=== PATIENT | male | born 1950 | race Two or more races ===

== ENCOUNTER 2018-11-26 03:02 | Emergency (ER) | payer MEDICARE, OTHER ==
[~2018-11-26] VITALS: Ht 180.3 cm; Wt 113.4 kg
[2018-11-26] MEDS ORDERED: KETOROLAC TROMETH 60MG/2ML VIAL IM ONE (07:00)
[2018-11-26 07:33] VITALS: BP 155/92
== END 2018-11-26 07:42 | disposition home or self-care (01) ==
LOC: ER 03:06
DX: S83.91XA Sprain of unspecified site of right knee, initial encounter (principal); E11.9 Type 2 diabetes mellitus without complications; M10.9 Gout, unspecified; E78.5 Hyperlipidemia, unspecified; I25.2 Old myocardial infarction; Z95.1 Presence of aortocoronary bypass graft; X58.XXXA Exposure to other specified factors, initial encounter; Y93.89 Activity, other specified; Y99.8 Other external cause status; Y92.89 Other specified places as the place of occurrence of the external cause
CPT/HCPCS: 73562; 96372; 99283; J1885

== ENCOUNTER 2025-07-21 21:29 | Emergency (ER) | payer MEDICARE, OTHER ==
[~2025-07-21] VITALS: Ht 180.3 cm; Wt 106.4 kg
[2025-07-21 21:33] VITALS: BP 171/89; PULSE 111; RESP 14; TEMP 99.8; O2SAT 98
--- NOTE | 2025-07-21 21:53 | ED.PDOC ---
History of Present Illness HPI Comments 75 year-old morbidly obese male presents to the ED via EMS with a chief complaint of general weakness for X6 hours today. Pt has a PMHx of type II DM, Gout, High Lipids, HTN, and W[place]. Patient reports a fall, today, with minor abrasions to the hands and knees. Patient additionally reports a cat bite to the R hand, middle finger X3 days ago. Patient went to and was prescribed Augmentin for the puncture wound. Patient reports being non-compliant with medications today. Patients BGL were elevated today at 282, compared to normal levels of 136. Patient has no further complaints or modifying factors at this time. Chief Complaint: General Weakness Time Seen by MD: 21:36 Primary Care Provider: ELMER Sheppard Notes: Medications, Allergies Allergies: Coded Allergies: NO KNOWN ALLERGIES (Unverified , 02/02/14) Information Source: Patient, Emergency Med Personnel Mode of Arrival: EMS Severity: Moderate Timing: Hours Duration: Since onset Past Medical History PAST MEDICAL HISTORY: DM, Gout, High Lipids, HTN, W[place] Surgical History: CABG, Hernia Repair Social History Smoker: Non-Smoker Alcohol: Occasionally Drugs: Denies Drug Use Lives In: Home Constitutional: reports: weakness; denies: chills, diaphoresis, fatigue, fever, malaise, sweats, others EENTM: denies: blurred vision, double vision, ear bleeding, ear discharge, ear drainage, ear pain, ear ringing, eye pain, eye redness, hearing loss, mouth pain, mouth swelling, nasal discharge, nose bleeding, nose congestion, nose pain, photophobia, tearing, throat pain, throat swelling, voice changes, others Respiratory: denies: cough, hemoptysis, orthopnea, SOB at rest, shortness of breath, SOB with excertion, stridor, wheezing, others Cardiovascular: denies: chest pain, dizzy spells, diaphoresis, Dyspnea on exertion, edema, irregular heart beat, left arm pain, lightheadedness, palpitations, PND, syncope, others Gastrointestinal: denies: abdomen distended, abdominal pain, blood streaked bowels, constipated, diarrhea, dysphagia, difficulty swallowing, hematemesis, melena, nausea, poor appetite, poor fluid intake, rectal bleeding, rectal pain, vomiting, others Genitourinary: denies: burning, dysuria, flank pain, frequency, hematuria, incontinence, penile discharge, penile sore, pain, testicle pain, testicle swelling, urgency, others Neurological: denies: dizziness, fainting, headache, left sided numbness, left sided weakness, numbness, paresthesia, pre-existing deficit, right sided numbness, right sided weakness, seizure, speech problems, tingling, tremors, weakness, others Musculoskeletal: denies: back pain, gout, joint pain, joint swelling, muscle pain, muscle stiffness, neck pain, others Integumetry: denies: bruises, change in color, change in hair/nails, dryness, laceration, lesions, lumps, rash, wounds, others Allergic/Immunocompromised: denies: Difficulty Healing, Frequent Infections, Hives, Itching, others Hematologic/Lymphatic: denies: anemia, blood clots, easy bleeding, easy bruising, swollen glands, others Endocrine: denies: excessive hunger, excessive sweating, excessive thirst, excessive urination, flushing, intolerance to cold, intolerance to heat, unexplained weight gain, unexplained weight loss, others Psychiatric: denies: anxiety, bipolar disorder, depression, hopeless, panic disorder, schizophrenia, sleepless, suicidal, others All Other Systems: Reviewed and Negative Physical Exam General Appearance: No Apparent Distress, Normal HEENT: Normal ENT Inspection, Pharynx Normal, TMs Normal Neck: Full Range of Motion, Non-Tender, Normal, Normal Inspection Respiratory: Chest Non-Tender, Lungs Clear, No Accessory Muscle Use, No Respiratory Distress, Normal Breath Sounds Cardiovascular: No Edema, No JVD, No Murmur, No Gallop, Normal Peripheral Pulses, Regular Rate/Rhythm Breast Exam: Deferred Gastrointestinal: No Organomegaly, Non Tender, No Pulsatile Mass, Normal Bowel Sounds, Soft Genitalia: Deferred Pelvic: Deferred Rectal: Deferred Extremities: No calf tenderness, Other (R ring finger redness up to proximal phalanx) Musculoskeletal : Apperance: Normal Neurologic: Alert, president celebrity acquistion II-XII nml as Tested, No Motor Deficits, Normal Affect, Normal Mood, No Sensory Deficits Cerebellar Function: Normal Reflexes: Normal Skin: Dry, Normal Color, Warm Lymphatic: No Adenopathy Was a procedure done? Was a procedure done?: No Differential Dx Considerations may include: Cellulitis, osteomyelitis, abscess, tenosynovitis, necrotizing fasciitis, lymphangitis, X-Ray, Labs, Meds, VS Vital Signs Date Time Temp Pulse Resp B/P (MAP) Pulse Ox O2 Delivery O2 Flow Rate FiO2 07/21/25 21:33 99.8 111 14 171/89 98 99.8 07/21/25 21:32 110 Lab Test 07/21/25 22:00 Range/Units White Blood Count 8.2 4.4-10.8 10^3/uL Red Blood Count 4.89 4.5-5.90 10^6/uL Hemoglobin 14.6 13.5-17.5 g/dL Hematocrit 42.6 41.0-53.0 % Mean Corpuscular Volume 87.3 80.0-100.0 fL Mean Corpuscular Hemoglobin 29.8 28.0-32.0 pg Mean Corpuscular Hemoglobin Concent 34.2 32.0-36.0 g/dL Red Cell Distribution Width 14.7 H 11.8-14.3 % Platelet Count 165 140-450 10^3/uL Mean Platelet Volume 9.2 6.9-10.8 fL Neutrophils (%) (Auto) 82.1 H 37.0-80.0 % Lymphocytes (%) (Auto) 11.5 10.0-50.0 % Monocytes (%) (Auto) 6.0 0.0-12.0 % Eosinophils (%) (Auto) 0.0 0.0-7.0 % Basophils (%) (Auto) 0.4 0.0-2.0 % Neutrophils # (Auto) 6.7 1.6-8.6 10 ^3/uL Lymphocytes # (Auto) 0.9 0.4-5.4 10 ^3/uL Monocytes # (Auto) 0.5 0-1.3 10 ^3/uL Eosinophils # (Auto) 0 0-0.8 10 ^3/uL Basophils # (Auto) 0 0-0.2 10 ^3/uL Nucleated Red Blood Cells 0.0 % Sodium Level 133 L 136-145 mmol/L Potassium Level 4.1 3.5-5.1 mmol/L Chloride Level 99 98-107 mmol/L Carbon Dioxide Level 23 20-31 mmol/L Anion Gap 11 5-15 Blood Urea Nitrogen 10 9-23 mg/dL Creatinine 1.12 0.700-1.30 mg/dL Glomerular Filtration Rate Calc 68 >90 mL/min BUN/Creatinine Ratio 8.9 L 10.0-20.0 Serum Glucose 238 H 74-106 mg/dL Calcium Level 10.0 8.7-10.4 mg/dL X-Ray, Labs, Meds, VS Comment Previous history reviewed: DM, GOUT, HIGH LIPIDS, HTN, [place], CABG, HERNIA REPAIR The following tests were ordered, and results were reviewed by me: CBC, BMP Additional Information was gathered from interviewing the following independent historians: Pt was admitted 02/03/14 for acute chest pains, Acute coronary syndrome, Hyperglycemia, Hypertension, Obesity I reviewed and agreed with the following test results read by other providers: N/A I discussed treatment and results with medical personnel and: Patient Comprehensive systems review obtained and negative except for what is stated in the HPI. Time of 1ST Reevaluation: 22:32 Reevaluation 1ST: Unchanged Time of 2ND Reevaluation: 00:00 Reevaluation 2ND: eloped Patient Education/Counseling: Diagnosis, Treatment, Prognosis, Need For Follow Up Family Education/Counseling: No Family Present Comments This is a patient who has been by his CAD and has a rapidly advancing infection of the right ring finger. At this point patient does not appear to be septic. He does not have evidence of abscess nor osteomyelitis. However patient we will required admission with IV antibiotics because he is diabetic and is infection appeared to be aggressive. however, pt has eloped. I called the patient's home number however his mailbox is full and I was unable SEPSIS Sepsis Screen Date sepsis recognized/suspect: Jul 21, 2025 Time Sepsis recognized/suspect: 2132 Recent Procedure: No On Antibiotic Therapy: No Respiratory Rate >20: No Heart Rate >90: Yes Temp<36 C (96.8 F) or >38.3 C: No SBP <90 or MAP <65 mmHG: No New Acute Mental Status Change: No Is the patient on CPAP, BIPAP,: No Physician Orders Electrocardigram (07/21/25 21:58) Vital Signs Date Time Temp Pulse Resp B/P (MAP) Pulse Ox O2 Delivery O2 Flow Rate FiO2 07/21/25 21:33 99.8 111 14 171/89 98 99.8 07/21/25 21:32 110 Laboratory Tests Test 07/21/25 22:00 White Blood Count 8.2 10^3/uL (4.4-10.8) Departure 1 Departure Time of Disposition: 23:47 Impression: Primary Impression: Cellulitis Additional Impressions: Diabetes Cat bite Disposition: 07 LEFT AWOL/ELOPED Condition: Other (unknown) Critical Care Note Critical Care Time?: No Stability Stability form required: No Heart Score Heart Score: Heart Score Response (Comments) Value History Slightly Suspicious 0 EKG N/A 0 Age >65 2 Risk Factors 1 or 2 risk factors 1 Troponin N/A 0 Total 3 I personally scribed for CHULA GALVEZ MD ([email or web address]) on 07/21/25 at 21:53. Electronically submitted by Belgica Schaffer ([email or web address]). I personally scribed for [facility]ULA [facility]Z MD ([facility] on 07/21/25 at 21:57. Electronically submitted by Belgica Schaffer ([email or web address]). CHULA GALVEZ MD Jul 21, 2025 21:53
[2025-07-21 22:30] LABS: Chloride 99 mmol/L (98-107); Potassium 4.1 mmol/L (3.5-5.1)
[2025-07-21 22:31] LABS: Anion Gap 11 (5-15); Calcium 10.0 mg/dL (8.7-10.4); Carbon Dioxide 23 mmol/L (20-31)
[2025-07-21 22:33] LABS: Hematocrit 42.6 % (41.0-53.0); Hemoglobin 14.6 g/dL (13.5-17.5); Mean Corpuscular Hemoglobin 29.8 pg (28.0-32.0); Mean Corpuscular Volume 87.3 fL (80.0-100.0); Nucleated Red Blood Cells % 0.0 %
[2025-07-21 22:36] LABS: BUN/Creatinine Ratio 8.9 (10.0-20.0); Blood Urea Nitrogen 10 mg/dL (9-23)
[2025-07-21 23:03] LABS: Glucose 238 mg/dL (74-106); Sodium 133 mmol/L (136-145)
--- NOTE | 2025-07-22 06:52 | ECG ---
[facility] Test Date: 2025-07-21 Test Time: 21:32:19 Pat Name: REE ORTEGA Department: [facility] ED Patient ID: [id number] Room: Gender: M [employer]: VANI : 1950 Requested By: CHULA GALVEZ Order Number: [id number] Reading MD: Tray Manzanares Measurements Intervals [place] Rate: 110 P: 7 [place]: 206 QRS: -47 QRSD: 88 T: 76 QT: 368 QTc: 498 Interpretive Statements Sinus tachycardia Left anterior fascicular block Abnormal R-wave progression, late transition Borderline T abnormalities, anterior leads Borderline prolonged QT interval Electronically Signed On 07-22-2025 15:29:03 PST by Tray Manzanares Please click the below link to view image of tracing.
== END 2025-07-22 00:02 | disposition left against medical advice (07) ==
LOC: ER 21:29 → EDBD 21:29 → ER 07-22 00:02
DX: S61.451A Open bite of right hand, initial encounter (principal); L03.113 Cellulitis of right upper limb; E11.9 Type 2 diabetes mellitus without complications; I10 Essential (primary) hypertension; I25.2 Old myocardial infarction; M10.9 Gout, unspecified; Z95.1 Presence of aortocoronary bypass graft; Z98.890 Other specified postprocedural states; W55.01XA Bitten by cat, initial encounter; Y93.89 Activity, other specified; Y92.89 Other specified places as the place of occurrence of the external cause; Y99.8 Other external cause status
CPT/HCPCS: 36415; 80048; 85025; 93005